=== PATIENT | male | born 1985 | race Caucasian/White ===

== ENCOUNTER 2025-04-20 06:54 | Outpatient (OUT) | payer BC, SELFPAY ==
[2025-04-20 07:16] LABS: Basophils Absolute Auto 0.1 10^3/uL (0.0-0.1); Basophils Percent Auto 0.4 % (0.2-2.0); Eosinophils Absolute Auto 0.6 10^3/uL (0.0-0.7); Eosinophils Percent Auto 4.2 % (0.9-7.0); Hematocrit 45.3 % (42.0-54.0); Hemoglobin 15.5 g/dL (14.0-18.0); Immature Granulocytes Abs Auto 0.03 10^3/uL (0.00-0.03); Immature Granulocytes Pct Auto 0.2 % (0.0-0.5); Lymphocytes Absolute Auto 2.7 10^3/uL (1.2-3.8); Lymphocytes Percent Auto 19.2 % (20.5-60.0); Mean Corpuscular HGB Conc 34.2 g/dL (29.9-35.2); Mean Corpuscular Hemoglobin 30.9 pg (25.9-34.0); Mean Corpuscular Volume 90.4 fL (80.0-94.0); Mean Platelet Volume 10.4 fL (9.5-13.5); Monocytes Absolute Auto 0.9 10^3/uL (0.3-0.8); Monocytes Percent Auto 6.1 % (1.7-12.0); Neutrophils Absolute Auto 9.7 10^3/uL (1.4-6.5); Neutrophils Percent Auto 69.9 % (43.0-75.0); Platelet Count 265 10^3/uL (150-450); Red Blood Count 5.01 10^6/uL (4.70-6.10); Red Cell Distribution Width 12.7 % (11.0-15.0); White Blood Count 13.9 10^3/uL (4.0-11.0)
[2025-04-20 07:18] LABS: Bilirubin Urine NEGATIVE (NEGATIVE); Blood Urine SMALL (NEGATIVE); Clarity Urine CLEAR (CLEAR); Color Urine YELLOW (YELLOW); Glucose Urine UA NEGATIVE (NEGATIVE); Ketones Urine NEGATIVE (NEGATIVE); Leukocyte Esterase Urine NEGATIVE (NEGATIVE); Nitrite Urine NEGATIVE (NEGATIVE); Protein Urine NEGATIVE (NEG/TRACE); Specific Gravity Urine 1.025 (1.005-1.025); Urobilinogen Urine 0.2 EU/dL (0.2-1.0)
[2025-04-20 07:22] LABS: Urine Microscopic Indicated YES
[2025-04-20 07:30] LABS: Bacteria Urine TRACE #/HPF (NONE SEEN); Cast Seen? NONE SEEN #/LPF (NONE SEEN); Crystals Seen? None Seen #/HPF (None Seen); Mucus Urine NONE SEEN (NONE SEEN); Squamous Epithelial Cell Urine RARE #/LPF (NONE/RARE); WBC Urine NONE SEEN #/HPF (NONE SEEN)
[2025-04-20 11:00] LABS: Alanine Aminotransferase 26 U/L (16-63); Albumin Level 3.6 g/dL (3.4-5.0); Alkaline Phosphatase 58 U/L (46-116); Anion Gap 12.7; Aspartate Amino Transferase 16 U/L (15-37); BUN Creatinine Ratio 14.4; Bilirubin Total 0.3 mg/dL (0.2-1.0); Calcium 9.4 mg/dL (8.5-10.1); Carbon Dioxide 28.4 mmol/L (21.0-32.0); Chloride 106 mmol/L (98-107); Chol HDL Ratio 4.9; Cholesterol 192 mg/dL (<=200); Estimated GFR (African America >60 (>=60 mL/min/1.73m^2); Estimated GFR (Non-African Ame >60 (>=60 mL/min/1.73m^2); Globulin 3.7 g/dL; Glucose 110 mg/dL (74-106); HDL Cholesterol 39 mg/dL (40-60); Potassium 4.1 mmol/L (3.5-5.1); Sodium 143 mmol/L (136-145); Thyroid Stimulating Hormone 2.358 uIU/mL (0.358-3.740); Total Protein 7.3 g/dL (6.4-8.2); Triglycerides 125 mg/dL (<=150)
== END 2025-04-20 06:55 | disposition home or self-care (01) ==
LOC: LAB 06:59
PROVIDERS: PCP Nurse Practitioner; Visit Provider Nurse Practitioner
DX: Z00.00 Encounter for general adult medical examination without abnormal findings (principal)
CPT/HCPCS: 36415; 80053; 80061; 81001; 84443; 85025

== ENCOUNTER 2025-05-04 07:02 | Outpatient (OUT) | payer BC, SELFPAY ==
--- OUTSIDE RECORDS SUMMARY | 2023-11-10 10:00 | XMS_ITS ---
Author Organization Formerly [facility] vices Address [address] [place] [id number] Care Team Providers Care Microstrategy Architect Name Role Phone Viji Kerns Unavailable [phone] REASON FOR VISIT Pro Cav (39) Social History Sex Assigned At : Social History Observation Description Sex Assigned At Male Encounters Encounter Location Date Provider Diagnosis [facility] [address] [place], [place] [phone] 11/10/2023 Viji Kerns Plan Of Treatment No Information Progress Notes * Mateus GAUTAMDOB:1985 ( 39 yo M)Acc No.[id number]:11/10/2023 Dental Note Patient: Mateus LOVING Provider: Carlton Kerns DDS :1985 A ge:38 Y S ex:Male Date:11/10/2023 Address:[address] [place], [place] [id number] Subjective: * Chief Complaints: * 1 . Pro Cav (39). * Medical History: Objective: * Vitals: Assessment: Plan: * Treatment: * Billing Information: * Visit Code: * Procedure Codes: * Electronic signature of Daniella Kerns DDS on 05/04/2025 at 07:06 AM EDT Sign off status: Pending * Provider: Carlton Kerns DDS Date: 0 11/10/2023 Generated for Kaylen su/Geena/eTransmitting on: 0 05/04/2025 07:06 AM EDT
--- OUTSIDE RECORDS SUMMARY | 2025-05-04 07:06 | XMS_ITS | Encounter Summary ---
Author Organization [facility] Address [address] [place] [address] Care Team Providers Care Domestic Laundry Worker Name Role Phone Luc Molina MD Primary Care Provider Adelaide Lucero NP Unavailable [phone] Encounter Details Date Type Department Care Team (Late Contact Info) Description 04/20/2025 Clinisync Result Encounter [facility] External Department Unsolicited Adelaide Lucero, BIA [address] [place] [address] Social History Tobacco Use Types Packs/Day Years Used Date Smoking Tobacco: Every Day Cigarettes 1 25.5 Started: 1999 Smokeless Tobacco: Current Snuff Alcohol Use Standard Drinks/Week Comments Not Currently 0 (1 standard drink = 0.6 oz pure alcohol) caffine: daily: 2-4 pop cans, Sex and Gender Information Value Date Recorded Sex Assigned at Not on file Legal Sex Male 5:17 PM EDT Gender Identity Not on file Sexual Orientation Not on file documented as of this encounter Plan of Treatment Upcoming Encounters Date Type Department Care Team (Late st Contact Info) Description 05/17/2025 4:50 PM EDT Consult [facility] [address] [facility] [address] [place] [phone] Lenard Gallardo DPM 3[address] [facility] [address] [place] [address] documented as of this encounter Procedures Procedure Name Priority Date/Time Associated Diagnosis Comments [facility] CMP (CMP) (FOR REMOTE [facility] USE) Routine 04/20/2025 7:10 AM EDT ALL THYROID STIM HORMONE Routine 04/20/2025 7:10 AM EDT ALL LIPID PROFILE (FASTING) Routine 04/20/2025 7:10 AM EDT ALL CBC WITH AUTO DIFF Routine 04/20/2025 7:10 AM EDT TBH URINE MICROSCOPIC ONLY Routine 04/20/2025 7:02 AM EDT TBH UA (CLEAN/CATCH) MICROSCOPIC IF INDICATE Routine 04/20/2025 7:02 AM EDT documented in this encounter Results * ALL THYROID STIM HORMONE (04/20/2025 7:10 AM EDT) THYROID STIMULATING HORMONE 2.358 0.358 - 3.740 uIU/mL TBH 04/20/2025 7:10 AM EDT 04/20/2025 7:11 AM EDT Narrative CLINISYNC - 04/20/2025 11:00 AM EDT us Adelaide Lucero NP CLINISYNC Final Result CLINISYNC [facility] * (ABNORMAL) ALL LIPID PROFILE (FASTING) (04/20/2025 7:10 AM EDT) TRIGLYCERIDES 125 <=150 mg/dL TBH CHOLESTEROL 192 <=200 mg/dL TB HDL CHOLESTEROL 39(L) 40 - 60 mg/dL TB Comment: > or =60 mg/dl - LOW CARDIOVASCULAR RISK <40 mg/dl - HIGH CARDIOVASCULAR RISK LDL CHOLESTEROL CALCULATED 128.0 mg/dL TB Comment: <100 mg/dl OPTIMAL 100-129 mg/dl NEAR OR ABOVE OPTIMAL 130-159 mg/dl BORDERLINE HIGH 160-189 mg/dl HIGH >190 mg/dl VERY HIGH VLDL CHOLESTEROL 25.0 mg/dL TB CHOL HDL RATIO 4.9 TB Comment: 3.3 - 4.4 LOW RISK 4.4 - 7.1 AVERAGE RISK 7.1 - 11.0 MODERATE RISK >11.0 HIGH RISK 04/20/2025 7:10 AM EDT 04/20/2025 7:11 AM EDT Narrative CLINISYNC - 04/20/2025 11:00 AM EDT us Adelaide Lucero NP [facility] ([facility]) [facility] CMP (CMP) (FOR REMOTE [facility] USE) (04/20/2025 7:10 AM EDT) SODIUM 143 136 - 145 mmol/L TBH POTASSIUM 4.1 3.5 - 5.1 mmol/L TBH CHLORIDE 106 98 - 107 mmol/L TBH CARBON DIOXIDE 28.4 21.0 - 32.0 mmol/L TBH ANION GAP 12.7 TBH GLUCOSE 110(H) 74 - 106 mg/dL TBH BLOOD UREA NITROGEN 17.0 7.0 - 18.0 mg/dL TBH CREATININE 1.18 0.70 - 1.30 mg/dL TBH TBH EGFR-AF GHANAIAN >60 >=60 mL/min/1. 73m 2 TBH TBH EGFR-NON AF GHANAIAN >60 >=60 mL/min/1. 73m 2 TBH BUN CREATININE RATIO 14.4 TBH CALCIUM 9.4 8.5 - 10.1 mg/dL TBH BILIRUBIN TOTAL 0.3 0.2 - 1.0 mg/dL TBH ASPARTATE AMINO TRANSFERASE 16 15 - 37 U/L TBH ALANINE AMINOTRANSFERASE 26 16 - 63 U/L TBH ALKALINE PHOSPHATASE 58 46 - 116 U/L TBH TOTAL PROTEIN 7.3 6.4 - 8.2 g/dL TBH ALBUMIN LEVEL 3.6 3.4 - 5.0 g/dL TBH GLOBULIN 3.7 g/dL TBH ALBUMIN GLOBULIN RATIO 1.0 TBH 04/20/2025 7:10 AM EDT 04/20/2025 7:11 AM EDT Narrative CLINISYNC - 04/20/2025 11:00 AM EDT Adealide Lucero NP CLINISYNC Final Result CLINISYNC [facility] * (ABNORMAL) ALL CBC WITH AUTO DIFF (04/20/2025 7:10 AM EDT) [facility] TB WBC 13.9(H) 4.0 - 11.0 10 3/uL TBH TBH RBC 5.01 4.70 - 6.10 10 6/uL TBH TBH HGB 15.5 14.0 - 18.0 g/dL TBH TBH HCT 45.3 42.0 - 54.0 % TBH TBH MCV 90.4 80.0 - 94.0 fL TBH TBH MCH 30.9 25.9 - 34.0 pg TBH TBH MCHC 34.2 29.9 - 35.2 g/dL TBH TBH RDW 12.7 11.0 - 15.0 % TBH TBH PLT 265 150 - 450 10 3/uL TBH TBH MPV 10.4 9.5 - 13.5 fL TBH NEUTROPHILS PERCENT AUTO 69.9 43.0 - 75.0 % TBH LYMPHOCYTES PERCENT AUTO 19.2(L) 20.5 - 60.0 % TBH MONOCYTES PERCENT AUTO 6.1 1.7 - 12.0 % TBH TBH EO % 4.2 0.9 - 7.0 % TBH BASOPHILS PERCENT AUTO 0.4 0.2 - 2.0 % TBH IMMATURE GRANULOCYTES PCT AUTO 0.2 0.0 - 0.5 % TBH NEUTROPHILS ABSOLUTE AUTO 9.7(H) 1.4 - 6.5 10 3/uL TBH LYMPHOCYTES ABSOLUTE AUTO 2.7 1.2 - 3.8 10 3/uL TBH MONOCYTES ABSOLUTE AUTO 0.9(H) 0.3 - 0.8 10 3/uL TBH TBH EO # 0.6 0.0 - 0.7 10 3/uL TBH BASOPHILS ABSOLUTE AUTO 0.1 0.0 - 0.1 10 3/uL TBH IMMATURE GRANULOCYTES ABS AUTO 0.03 0.00 - 0.03 10 3/uL TBH 04/20/2025 7:10 AM EDT 04/20/2025 7:11 AM EDT Narrative CLINISYNC - 04/20/2025 7:33 AM EDT Adelaide Lucero NP CLINISYNC Final Result CLINISYNC [facility] * (ABNORMAL) TBH URINE MICROSCOPIC ONLY (04/20/2025 7:02 AM EDT) TBH WBC NONE SEEN NONE SEEN #/HPF TBH TBH RBC 5-10(A) 0 - 2 #/HPF TBH BACTERIA URINE TRACE(A) NONE SEEN #/HPF TBH MUCUS URINE NONE SEEN NONE SEEN TBH SQUAMOUS EPITHELIAL CELL URINE RARE NONE/RARE #/LPF TBH CRYSTALS SEEN? None Seen None Seen #/HPF TBH CAST SEEN? NONE SEEN NONE SEEN #/LPF TBH 04/20/2025 7:02 AM EDT 04/20/2025 7:11 AM EDT Narrative CLINISYNC - 04/20/2025 7:30 AM EDT Adelaide Lucero NP CLINISYNC Final Result Performing Organization Address [facility] Co de Phone Number CLINISYNC TBH * (ABNORMAL) TBH UA (CLEAN/CATCH) MICROSCOPIC IF INDICATE (04/20/2025 7:02 AM EDT) COLOR URINE YELLOW YELLOW TBH CLARITY URINE CLEAR CLEAR TBH SPECIFIC GRAVITY URINE 1.025 1.005 - 1.025 TBH PH URINE 6.0 5.0 - 9.0 TBH PROTEIN URINE NEGATIVE NEG/TRACE mg/dL TBH GLUCOSE URINE UA NEGATIVE NEGATIVE mg/dL TBH BILIRUBIN URINE NEGATIVE NEGATIVE TBH KETONES URINE NEGATIVE NEGATIVE mg/dL TBH BLOOD URINE SMALL(A) NEGATIVE TBH NITRITE URINE NEGATIVE NEGATIVE TBH UROBILINOGEN URINE 0.2 0.2 - 1.0 EU/dL TBH LEUKOCYTE ESTERASE URINE NEGATIVE NEGATIVE TBH URINE MICROSCOPIC INDICATED YES TBH 04/20/2025 7:02 AM EDT 04/20/2025 7:11 AM EDT Narrative CLINISYNC - 04/20/2025 7:30 AM EDT Adelaide Lucero NP CLINISYNC Final Result CLINISYNC [facility] documented in this encounter Visit Diagnoses Not on filedocumented in this encounter Care Teams Domestic Laundry Worker Relationship Specialty Start Date End Date Luc Molina MD [address] [place] [address] PCP - General Family Medicine 04/16/25 Adelaide Lucero NP [address] [place] [phone] Nurse Practitioner Family Medicine 04/16/25 documented as of this encounter
--- OUTSIDE RECORDS SUMMARY | 2025-05-04 07:06 | XMS_ITS | Clinical Summary ---
Author Organization [facility] Address [id number] [place] [address] Care Team Providers Care Shellfish Processing Laborer Name Role Phone Unavailable Primary Care Provider Unavailabl e Social History Tobacco Use Types Packs/Day Years Used Date Smoking Tobacco: Never Assessed Childcare Answer Date Recorded Childcare Unknown 04/19/2019 Employment Answer Date Recorded Employment Unknown 04/19/2019 Sex and Gender Information Value Date Recorded Sex Assigned at Not on file Legal Sex Male 11:30 AM EDT Gender Identity Not on file Sexual Orientation Not on file Plan of Treatment Not on file Medical Devices Not on file
--- OUTSIDE RECORDS SUMMARY | 2025-05-04 07:06 | XMS_ITS | Clinical Summary ---
Author Organization [facility] Address [address] [place] [address] Care Team Providers Care Applications Systems Analyst Name Role Phone Luc Molina MD Primary Care Provider [phone] Adelaide Lucero NP Unavailable [phone] Medications No known medications Active Problems Problem Noted Date Diagnosed Date Elevated WBC count 04/21/2025 Hyperglycemia 04/21/2025 Asymptomatic microscopic hematuria 04/21/2025 Encounter for adult wellness visit 04/19/2025 Assessment & Plan (04/19/2025 6:30 AM EDT): Reviewed Ht/Wt/BMI Recommend eye exam yearly Recommend dental exams twice a year Balance work/leisure activities Exercises is recommended most days of the week (appropriate as chronic conditions allow) Follow up yearly and prn Umbilical hernia without obstruction and without gangrene 04/19/2025 Assessment & Plan (04/19/2025 11:43 AM EDT): Advised of red flag sxs Will monitor, notify office if more freq pain, increase in size Corns of multiple toes 04/19/2025 Assessment & Plan (04/19/2025 11:43 AM EDT): Refer to podiatry Tobacco dependence 04/19/2025 Assessment & Plan (04/19/2025 11:44 AM EDT): Working on transition from cigs, to zin packets Recommend quitting all nicotine forms Encounters Date Type Department Care Team Description 04/21/2025 Orders Only [facility] [address] [place] [place] [address] Adelaide Lucero NP Leukocytosis, unspecified type (Primary Dx); Hyperglycemia; Asymptomatic microscopic hematuria 04/20/2025 Clinisync Result Encounter [facility] External Department Unsolicited Adelaide Lucero NP 04/19/2025 11:00 AM EDT Office Visit [facility] [address] [place] [address] Adelaide Lucero NP Encounter for adult wellness visit (Primary Dx); Umbilical hernia without obstruction and without gangrene; Corns of multiple toes; Tobacco dependence 04/19/2025 Bamboo flowsheet [facility] [address] [place] [phone] Adelaide Lucero NP from Last 3 Months Social History Tobacco Use Types Packs/Day Years Used Date Smoking Tobacco: Every Day Cigarettes 1 25.5 Started: 1999 Smokeless Tobacco: Current Snuff Tobacco Cessation:Ready to Q uit: Yes; Counseling Given: Not Answered Alcohol Use Standard Drinks/Week Comments Not Currently 0 (1 standard drink = 0.6 oz pure alcohol) caffine: daily: 2-4 pop cans, Sex and Gender Information Value Date Recorded Sex Assigned at Not on file Legal Sex Male 5:17 PM EDT Gender Identity Not on file Sexual Orientation Not on file Last Filed Vital Signs Vital Sign Reading Time Taken Comments Blood Pressure 122/84 04/19/2025 11:11 AM EDT Pulse 95 04/19/2025 11:11 AM EDT Temperature 36.7 C (98 F) 04/19/2025 11:11 AM EDT Respiratory Rate 18 04/19/2025 11:11 AM EDT Oxygen Saturation 97% 04/19/2025 11:11 AM EDT Inhaled Oxygen Concentration - - Weight 88.5 kg (195 lb) 04/19/2025 11:11 AM EDT Height - - Body Mass Index - - Plan of Treatment Upcoming Encounters Date Type Department Care Team ([facility] st Contact Info) Description 05/17/2025 4:50 PM EDT Consult [facility] [address] [facility] [address] [place] [phone] Lenard Gallardo DPM [address] [address] Health Maintenance Due Date Last Done Comments Influenza Vaccine (Season Ended) 2025 Procedures Procedure Name Priority Date/Time Associated Diagnosis Comments ALL THYROID STIM HORMONE Routine 04/20/2025 7:10 AM EDT ALL LIPID PROFILE (FASTING) Routine 04/20/2025 7:10 AM EDT CCF CMP (CMP) (FOR REMOTE [facility] USE) Routine 04/20/2025 7:10 AM EDT ALL CBC WITH AUTO DIFF Routine 04/20/2025 7:10 AM EDT TBH URINE MICROSCOPIC ONLY Routine 04/20/2025 7:02 AM EDT TBH UA (CLEAN/CATCH) MICROSCOPIC IF INDICATE Routine 04/20/2025 7:02 AM EDT from Last 3 Months Results * (ABNORMAL) CCF CMP (CMP) (FOR REMOTE [facility] USE) (04/20/2025 7:10 AM EDT) SODIUM 143 136 - 145 mmol/L TBH POTASSIUM 4.1 3.5 - 5.1 mmol/L TBH CHLORIDE 106 98 - 107 mmol/L TBH CARBON DIOXIDE 28.4 21.0 - 32.0 mmol/L TBH ANION GAP 12.7 TBH GLUCOSE 110(H) 74 - 106 mg/dL TBH BLOOD UREA NITROGEN 17.0 7.0 - 18.0 mg/dL TBH CREATININE 1.18 0.70 - 1.30 mg/dL TBH TBH EGFR-AF SCOTT[place] >60 >=60 mL/min/1. 73m 2 TBH TBH EGFR-NON AF SCOTTISH >60 >=60 mL/min/1. 73m 2 TBH BUN [...] Narrative CLINISYNC - 04/20/2025 11:00 AM EDT Adelaide Lucero NP CLINIS[facility]NC Final Result [facility] * ALL THYROID STIM HORMONE (04/20/2025 7:10 AM EDT) THYROID STIMULATING HORMONE 2.358 0.358 - 3.740 uIU/mL TB 04/20/2025 7:10 AM EDT 04/20/2025 7:11 AM EDT Narrative CLINISYNC - 04/20/2025 11:00 AM EDT Adelaide Lucero NP [facility] * ([facility]AL) ALL LIPID PROFILE (FASTING) (04/20/2025 [...] - 04/20/2025 11:00 AM EDT us Adelaide Titusdionnavanessa BIA CLINISYNC Final Result CLINISYNC TB * (ABNORMAL) ALL CBC WITH AUTO DIFF (04/20/2025 7:10 AM EDT) TB WBC 13.9(H) 4.0 - 11.0 10 [...] 7:10 AM EDT 04/20/2025 7:11 AM EDT [facility] 04/20/2025 7:33 AM EDT Adelaide Lucero NP CLINISYNC Final Result Performing Organization Address [facility] Co de Phone Number CLINISYMT TBH * (ABNORMAL) TBH URINE MICROSCOPIC ONLY [...] 7:02 AM EDT 04/20/2025 7:11 AM EDT [facility] - 04/20/2025 7:30 AM EDT Adelaide Lucero NP CLINISYNC Final Result Performing Organization Address [facility] Co de Phone Number CLINISYMT TBH * (ABNORMAL) TBH UA (CLEAN/CATCH) MICROSCOPIC [...] Adelaide Lucero NP CLINISYNC Final Result CLINISYNC TB from Last 3 Months Insurance [facility] Care Teams Applications Systems Analyst Relationship Specialty Start Date End Date Luc Molina MD [address] [place] [phone] PCP - General Family Medicine 04/16/25 Adelaide Lucero NP [address] [place] [phone] Nurse Practitioner Family Medicine 04/16/25
--- OUTSIDE RECORDS SUMMARY | 2025-05-04 07:06 | XMS_ITS | Encounter Summary ---
Author Organization [facility] Address [address] [place] [address] Care Team Providers Care Consultant [employer]. Vice President [employer] (Ex ) Name Role Phone Luc Molina MD Primary Care Provider Adelaide Lucero NP Unavailable [phone] Encounter Details Date Type Department Care Team (Late Contact Info) Description 04/21/2025 Orders Only [facility] [address] [place] [address] Adelaide Lucero, BIA [address] [place] [address] Leukocytosis, unspecified type (Primary Dx); Hyperglycemia; Asymptomatic microscopic hematuria Social History Tobacco Use Types Packs/Day Years [...] EDT Consult [facility] [address] [facility] [address] [place] [phone] Lenard Gallardo DPM [address] [facility] [address] [place] [address] Scheduled Orders Name Type Priority Associated Diagnoses Orde r Schedule CBC and differential Lab Routine Leukocytosis, unspecified type Expected: 04/21/2025 (Approximate), Expires: 04/21/2026 Urinalysis with reflex microscopic (clean catch) Lab Routine Asymptomatic microscopic hematuria Expected: 04/21/2025 (Approximate), Expires: 04/21/2026 Urine culture (clean catch) Microbiology Routine Asymptomatic microscopic hematuria Expected: 04/21/2025 (Approximate), Expires: 04/21/2026 Hemoglobin A1c Lab Routine Hyperglycemia Expected: 04/21/2025 (Approximate), Expires: 04/21/2026 documented as of this encounter Visit Diagnoses Diagnosis Leukocytosis, unspecified type- Primary Hyperglycemia Other abnormal glucose Asymptomatic microscopic hematuria documented in this encounter Care Teams Consultant [employer]. Vice President [employer] (Ex ) Relationship Specialty Start Date End Date Luc Molina MD [address] [place] [address] PCP - General Family Medicine 04/16/25 Adelaide Lucero NP [address] [place] [address] Nurse Practitioner Family Medicine 04/16/25 documented as of this encounter
[2025-05-04 07:39] LABS: Basophils Absolute Auto 0.1 10^3/uL (0.0-0.1); Basophils Percent Auto 0.4 % (0.2-2.0); Eosinophils Absolute Auto 0.6 10^3/uL (0.0-0.7); Eosinophils Percent Auto 3.6 % (0.9-7.0); Hematocrit 44.8 % (42.0-54.0); Hemoglobin 15.4 g/dL (14.0-18.0); Immature Granulocytes Abs Auto 0.04 10^3/uL (0.00-0.03); Immature Granulocytes Pct Auto 0.2 % (0.0-0.5); Lymphocytes Absolute Auto 2.7 10^3/uL (1.2-3.8); Lymphocytes Percent Auto 16.8 % (20.5-60.0); Mean Corpuscular HGB Conc 34.4 g/dL (29.9-35.2); Mean Corpuscular Hemoglobin 30.9 pg (25.9-34.0); Mean Corpuscular Volume 89.8 fL (80.0-94.0); Mean Platelet Volume 10.9 fL (9.5-13.5); Monocytes Absolute Auto 0.9 10^3/uL (0.3-0.8); Monocytes Percent Auto 5.7 % (1.7-12.0); Neutrophils Absolute Auto 11.7 10^3/uL (1.4-6.5); Neutrophils Percent Auto 73.3 % (43.0-75.0); Platelet Count 247 10^3/uL (150-450); Red Blood Count 4.99 10^6/uL (4.70-6.10); Red Cell Distribution Width 12.5 % (11.0-15.0)
[2025-05-04 08:15] LABS: Estimated Average Glucose 105 mg/dL; Glycohemoglobin A1C 5.3 % (4.5-6.2)
[2025-05-04 08:49] LABS: Bilirubin Urine NEGATIVE (NEGATIVE); Blood Urine TRACE-I (NEGATIVE); Clarity Urine CLEAR (CLEAR); Color Urine YELLOW (YELLOW); Glucose Urine UA NEGATIVE (NEGATIVE); Ketones Urine NEGATIVE (NEGATIVE); Leukocyte Esterase Urine NEGATIVE (NEGATIVE); Nitrite Urine NEGATIVE (NEGATIVE); Protein Urine NEGATIVE (NEG/TRACE); Urobilinogen Urine 0.2 EU/dL (0.2-1.0); pH Urine 6.5 (5.0-9.0)
[2025-05-04 08:57] LABS: Bacteria Urine TRACE #/HPF (NONE SEEN); Cast Seen? NONE SEEN #/LPF (NONE SEEN); Crystals Seen? None Seen #/HPF (None Seen); Mucus Urine NONE SEEN (NONE SEEN); RBC Urine 0-2 #/HPF (0-2); Squamous Epithelial Cell Urine NONE SEEN #/LPF (NONE/RARE); Urine Microscopic Indicated YES; WBC Urine NONE SEEN #/HPF (NONE SEEN)
== END 2025-05-04 07:03 | disposition home or self-care (01) ==
LOC: LAB 07:04
PROVIDERS: PCP Nurse Practitioner; Visit Provider Nurse Practitioner
DX: D72.829 Elevated white blood cell count, unspecified (principal); R31.21 Asymptomatic microscopic hematuria; R73.9 Hyperglycemia, unspecified
CPT/HCPCS: 36415; 81001; 81003; 83036; 85025; 87086